=== PATIENT | female | born 1980 | race Caucasian/White ===

== ENCOUNTER 2021-02-09 15:23 | Inpatient (IN) | payer OTHER ==
[~2021-02-09] VITALS: Ht 152.4 cm; Wt 116.6 kg
[~2021-02-09 15:23] MED LIST: ACETAMINOPHEN-1 EAC1 PO; ALBUTEROL INHAL17 GM IH; ALLEGRA180 MG; AMOXICILLIN 50500 MG PO; APAP/CODEINE ELI5 M1 PO; AUGMENTIN 875-1 EACH PO; AUGMENTIN 875875 M1 PO; AZITHROMYCIN 2250 MG PO; BACTRIM DS TAB1 EACH PO; CHERATUSSIN DA480 ML PO; CIPROFLOXACIN500 M1 PO; CITRATE OF MAG296 ML PO; CLARITIN-D 24 H1 TA1 PO; COLACE 100 MG100 MG PO; CUPRIMINE250 MG PO; DOXYCYCLINE 10100 MG PO; FLAGYL500 MG PO; FLEXERIL PO; FLONASE 0.05%50 MCG NASAL; HYDRALAZINE 5050 M1 PO; IBUPROFEN 800800 M1 PO; IBUPROFEN 800800 MG PO; LORTAB 5 MG/5001 TA1 PO; MACROBID 100 M100 M1 PO; MEDROL DOSPAK21 TA1 PO; MOTRIN 600 MG600 M1 OR; NAPROSYN500 MG PO; NOHOMEMEDICATIONS; NORCO 5-325 TA1 EACH PO; OTC NASAL SPRAY; PENICILLIN V P500 MG PO; PENICILLIN VK500 M1 PO; PERCOCET 5-3251 EACH PO; PHENERGAN 25 MG25 M1 PO; PREDNISONE 20 M20 M1 PO; PYRIDIUM200 MG PO; TOBREX5 ML OP; ULTRAM 50MG TAB50 MG PO; VEETIDS 250MG250 M1 PO; VENTOLIN HFA INH8 GM IH; VICODIN 5-5001 EACH PO; XANAX 0.5 MG0.5 MG PO; XANAX 1 MG TABLE1 MG PO; ZOFRAN4 MG PO; [UNRECOGNIZED DRUG - REMARK] PO
[2021-02-09 15:26] VITALS: BP 130/65
[2021-02-09 16:13] LABS: CALCIUM 8.3 mg/dL (8.5-10.1); CREATININE 0.9 mg/dL (0.6-1.0); POTASSIUM 3.5 mmol/L (3.5-5.1)
[2021-02-09 16:15] LABS: ABSOLUTE NEUTROPHILS 8.8 thou/uL (1.4-8.2); BASOPHILS 0.6 % (0.0-2.0); EOSINOPHILS 2.2 % (0.0-3.0); HEMATOCRIT 34.6 % (37.0-47.0); HEMOGLOBIN 11.3 gm/dL (12.0-15.0); LYMPHOCYTES 19.8 % (24.0-44.0); MCH 27.1 pg (26.0-34.0); MCHC 32.7 g/dL (28.0-37.0); MCV 82.8 fL (80.0-100.0); MONOCYTES 7.9 % (1.0-8.0); PLATELET COUNT 482 thou/uL (150-400); POLYS 69.5 % (36.0-66.0); RBC 4.18 mil/uL (4.20-5.00); RDW 14.8 % (10.5-14.5); WBC 12.6 thou/uL (4.0-11.0)
[2021-02-09 16:23] LABS: ALBUMIN 2.8 g/dL (3.4-5.0); TOTAL BILIRUBIN 0.3 mg/dL (0.2-1.0); TOTAL PROTEIN 7.3 g/dL (6.4-8.2)
[2021-02-09 18:55] LABS: TOTAL PROTEIN 7.1 g/dL (6.4-8.2)
[2021-02-09 21:49] VITALS: BP 168/93
[2021-02-09 22:12] VITALS: BP 127/77
[2021-02-09 22:35] VITALS: BP 120/69
--- NOTE | 2021-02-10 01:45 | NUR ---
ADMITTED TO ROOM 433 AT 2230 FROM ED. PATIENT IS A&OX4. REPORTS GENERALIZED PAIN ALL OVER HER BODY. PRN ANALGESIG PROVIDED TO MANAGE PAIN. ON ROOM AIR, O2sat REMAINS >92%. INTERMITTENT CONGESTED COUGH, UNABLE TO SPIT UP SPUTUM. LUNG SOUND ARE CLEAR UN UPPER LOBES, AND CRACKLES IN BILATERAL LOWER LOBES. PATIENT REPORTS BEING A REGULAR SMOKER, AND HAVING A HISTORY OF BRONCHITIS. REMAINS NON-FEBRILE. PRESENTS WITH ABSCESSES ON BACK OF NECK THAT IS ACTIVELY OOZING WITH PURULENT AND SANGUINOUS DRAINAGE, LEFT OPEN TO AIR. WOUND ON LEFT LOWER EXTREMITY FROM PREVIOUS FALL, CLEANED WITH NS AND COVERED WITH OPTIFOAM. PICTURES AND MEASUREMENTS OF OPEN WOUNDS PERFORMED. IV FLUIDS RUNNING AT 126cc/HR IN R HAND. PER SPECIAL WARFARE OPERATOR POE ORDER PATIENT IS TO BE NPO AFTER MIDNIGHT ON 02/10. PATIENT WAS ABLE TO HAVE A MEAL AND SNACKS AT 2300 OF 02/09. NOW RESTING POST ADMISSION ASSEMENT. CALL LIGHT WITHIN REACH. WILL CONTINUE TO MONITOR.
[2021-02-10 06:01] LABS: HEMOGLOBIN 10.4 gm/dL (12.0-15.0); MCHC 33.4 g/dL (28.0-37.0); MCV 83.9 fL (80.0-100.0); RBC 3.7 mil/uL (4.20-5.00); RDW 15.4 % (10.5-14.5); WBC 8.9 thou/uL (4.0-11.0)
[2021-02-10 06:12] VITALS: BP 125/60
[2021-02-10 06:19] LABS: CALCIUM 7.4 mg/dL (8.5-10.1); CREATININE 0.7 mg/dL (0.6-1.0); MAGNESIUM 1.9 mg/dL (1.8-2.4)
[2021-02-10 08:21] VITALS: BP 104/61
--- NOTE | 2021-02-10 08:37 | NUR ---
ASSESSMENT: CM REVIEWED CHART AND MET WITH PATIENT AT THE BEDSIDE. PT WAS ADMITTED DUE TO LIKELY SEPSIS. PT REPORTS BOILS ON THE BACK OF HER NECK AND LOWER EXTREMITY WOUND AFTER BUMPING HER LEG AFTER FALL ABOUT A MONTH Ago PER RECORDS. PT WAS COVID NEGATIVE. CM MET WITH PATIENT AND SHE IS NOT VERY FORTHCOMING WITH INFORMATION. PT REPORTS SHE LIVES AT HOME IN AN APT. WHEN ASKED HOW MANY STEPS PT HAD BEFORE ENTERING SHE SAID I DONT KNOW. PT REPORTS BEING INDEPENDENT WITH AMBULATION. PT DOES STATE SHE DOES NOT HAVE INSURANCE OF A PCP. CM PROVIDED PATIENT WITH HEALTH RESOURCE PACKET, [facility], FIND A PHYSICIAN FORM, WELL A [employer] DISCOUNT CARD. ID HAS BEEN CONSULTED WELL WOUND CARE. PT IS ON IV ANBX. CM WILL CONTINUE TO FOLLOW TO ASSIST NEEDED.
--- NOTE | 2021-02-10 11:19 | NUR ---
EXPLAINED ROLE OF OT TO PT., DISCUSSED WHAT IS INCLUDED IN AN EVALUATION. ALSO OBSERVED PT. AMBULATING IN HALLWAY WITH P.T. PT. IS DECLINING A FORMAL OT EVALUATION, STATES NO CONCERNS FOR SELF-CARE OR FUNCTIONAL MOBILITY. OT WILL D/C ORDERS PER PT. REQUEST.
--- NOTE | 2021-02-10 13:15 | NUR ---
ORDERS RECEIVED FOR PT EVAL AND TREAT. Pt LIVES IN APT W/ EXBOYFRIEND AND HIS GIRLFRIEND. HAS 3 FLIGHTS OF STAIRS W/ BILAT HR TO SECOND FLOOR APT. NO AD USE PRIOR. FELL ABOUT A MONTH AGO AND CUT HER LEG WHEN SHE TRIPPED. HAS L LE WOUND AT THAT SITE NOW. ALSO HAS BOILS ON BACK OF NECK/HEAD AND L FOOT. NO ROM OR MMT DEFICITS NOTED IN LEs. Pt HAS BEEN UP TO BATHROOM ON HER OWN ALREADY. Pt OBSERVED TO BE INDEP W/ BED MOBILITY, SIT>STAND, AND 250 FT AROUND UNIT PUSHING IV POLE. Pt REPORTED NO MOBILITY DEFICITS. Pt CLEARED TO BE UP AD ASHTYN AND STATED SHE WANTED TO BE ABLE TO WALK MORE. NO FURTHER ACUTE PT NEED IDENTIFIED. ACUTE PT TO SIGN OFF.
[2021-02-10 15:35] VITALS: BP 160/92
--- NOTE | 2021-02-10 18:30 | NUR ---
PT ASSESSED AT START OF SHIFT. NPO UNTIL LUNCH AND ABLE TO EAT AFTER NO SURGERY PLANS FOR TODAY. WOUND CARE IN TO SEE PT AND SURGEON CONSULTED TO DO I&D TOMORROW ON ABSCESSES. PT WALKED DOWN TO SMOKE OUTSIDE OF ER AND SECURITY CALLED AND ESCORTED HER BACK TO HER ROOM. PAIN MEDS HELPING PAIN.
[2021-02-10 20:02] VITALS: BP 142/84
--- NOTE | 2021-02-10 23:30 | NUR ---
DRESSSING CHANGE PROVIDED PER ORDERS. PT IS UP AD ASHTYN IN ROOM. SHE WAS GIVEN NORCO FOR PAIN. PT OBSERVED SLEEPING MOST OF THE TIME AND FEELS LIKE WE ARE "BOTHERING HER" WHEN WE GO IN TO PROVIDE NURSING CARE.SHE IS OTHERWISE COOPERATIVE. NPO AFTER MIDNOC-POSSIBLE I/D TOMORROW.CALL LIGHT WITHIN REACH.
[2021-02-11 06:20] LABS: HEMATOCRIT 31.1 % (37.0-47.0); HEMOGLOBIN 10.2 gm/dL (12.0-15.0); MCH 27.7 pg (26.0-34.0); MCHC 32.9 g/dL (28.0-37.0); MCV 84.1 fL (80.0-100.0); RBC 3.7 mil/uL (4.20-5.00); RDW 14.9 % (10.5-14.5); WBC 8.5 thou/uL (4.0-11.0)
[2021-02-11 06:29] LABS: CALCIUM 7.2 mg/dL (8.5-10.1); CREATININE 0.6 mg/dL (0.6-1.0); MAGNESIUM 1.9 mg/dL (1.8-2.4); POTASSIUM 4.8 mmol/L (3.5-5.1)
[2021-02-11 08:17] VITALS: BP 144/89
--- NOTE | 2021-02-11 10:17 | NUR ---
Assumed care of pt at 0700. Pt a&ox4. Flat affect. Pain controlled with prn pain medicine. IVF and IV antibiotics infusing. Surgery scheduled for 1230. Family at bedside. Call light within reach. Will continue to monitor.
[2021-02-11 10:39] LABS: URINE BILIRUBIN NEGATIVE (Negative); URINE BLOOD NEGATIVE (Negative); URINE CLARITY CLEAR; URINE COLOR YELLOW; URINE GLUCOSE-RANDOM* NEGATIVE (Negative); URINE KETONES NEGATIVE (Negative); URINE LEUKOCYTES-REFLEX NEGATIVE (Negative); URINE NITRITE-REFLEX NEGATIVE (Negative); URINE PROTEIN (DIPSTICK) NEGATIVE (Negative); URINE SPECIFIC GRAVITY 1.015 (1.005-1.035); URINE UROBILINOGEN 0.2 E.U./dl (0.2-1.0)
--- NOTE | 2021-02-11 11:57 | HC ---
[facility] [place] [address] CONSULTATION Name: KRISTI AGUILAR Room #: 433-I ADM IN M.R.#: [id number] Admission: 02/09/21 Attend Phys: Payam Burogs MD Discharge: Date of : 78 Report #: [id number] THIS REPORT FOR: cc: FAM - No family physician/PCP FAM - No family physician/PCP Jose Arauz MD ~ DATE OF SERVICE: 02/10/2021 INFECTIOUS DISEASE CONSULTATION ATTENDING PHYSICIAN: Dr. Quarles. REASON FOR EVALUATION: Multifocal skin and soft tissue infection, previous injury to the distal aspect of the left lower extremity plus multiple appear to be furuncles involving the posterior aspect of the neck under the scalp. HISTORY OF PRESENT ILLNESS: The patient examined. This is a 40-year-old with a history of asthma who notes she had what described as a significant injury with laceration over the proximal aspect of the anterior lateral leg some 2 weeks ago. She attended to it, however, over the course of recent days, had increasing pain associated with it. It is not clear that she had a purulent drainage, although she did comment there was some drainage. It is not entirely clear that she had a systemic illness or not. She is quite lethargic to somnolent at this point. Additionally, she notes multiple areas on her scalp that has been draining as well that are quite tender. She notes she has not had a previous history of this type before. She did undergo an evaluation. Lactic acid was 1.6. Coronavirus testing was negative. Plain film of the left tib-fib showed no acute bony abnormality. CT of the head was otherwise unremarkable. Cultures have been collected from the blood are thus far negative. Wound cultures in progress. Did have rare gram-positive cocci on Gram stain. A second culture, however, had moderate gram-positive cocci. She was empirically started on combination therapy with cefepime and vancomycin. Again, she denies any specific pulmonary or gastrointestinal related complaints, although she is quite somnolent. ALLERGIES: ASPIRIN AND TRAMADOL. CURRENT MEDICATIONS: Include enoxaparin, cefepime, vancomycin, albuterol, p.r.n. ondansetron, narcotic analgesics. PAST MEDICAL HISTORY: Known history of asthma, migraines, panic attacks. She reports prior to the interview left armpit abscess requiring previous I and D. SOCIAL HISTORY: Smokes cigarettes up to 1/2 pack daily. Occasional ethanol, no illicit drug use. [facility] [address] [place] [address] CONSULTATION Name: KRISTI AGUILAR Room #: 433-I [facility] IN [facility]#: [id number] Admission: 02/09/21 Attend Phys: Payam Burgos MD Discharge: Date of : 78 Report #: [id number] FAMILY HISTORY: Noncontributory. REVIEW OF SYSTEMS: Otherwise, limited due to her somnolence. PHYSICAL EXAMINATION: GENERAL: She appears somewhat chronically ill, undernourished, [id number] distress. VITAL SIGNS: Temperature 99, pulse 74, respirations 21, blood pressure 160/92. SKIN: Warm, dry, no rashes. HEENT: Furuncles noted on the posterior aspect of the neck up into the scalp. It is quite tender to palpation. There is a lot of dried drainage, moderate degree of surface inflammation. Normocephalic. Extraocular muscles intact. NECK: Supple. LUNGS: Diminished breath sounds, otherwise clear. HEART: Regular. I do not appreciate a murmur. ABDOMEN: Slightly distended, mildly firm, nontender. EXTREMITIES: Left lower extremity was evaluated. She has a laceration with eschar. It is quite tender over the site and in the 1-2 cm at its margins. There is no expressible material. Clearly, there is some old bloody purulent type drainage. GENITOURINARY AND RECTAL: Deferred. LABORATORY DATA: Cultures as described above. Electrolytes from today, sodium 140, potassium 4.0, chloride 106, bicarbonate 26, anion gap of 8, BUN and creatinine 11 and 0.7, glucose of 105. Estimated GFR of 92. CBC: White count of 8.9, it is down from initial of 12.6. H and H 10.4 and 31.0, platelets of 414. TSH 0.609. Prealbumin of 15.9. Sed rate of 47. Lactic acid of 1.6. CRP of 19.5. ASSESSMENT AND PLAN: 1. Multifocal areas of skin and soft tissue infection with furuncles associated with the posterior scalp also, likely a secondary bacterial infection associated with a laceration. It is reasonable to continue empiric therapy. We would presume a Staph or Strep etiology based statistically as well as the Gram stain showing gram-positive cocci. At that point, we would try to narrow down the spectrum. It is unclear whether the somnolence is secondary to the illness or perhaps an adverse drug effects or due to narcotic, continue to monitor expectantly. We will add incentive spirometry. We will go ahead and check additional diagnostic testing. She remains at somewhat increased risk. Continue wound care as prescribed. May need a debridement at least the left lower extremity wound. <ELECTRONICALLY SIGNED> By: Jose Arauz MD 02/11/21 1157 [id number] Jose Arauz MD /prabha
[2021-02-11 16:07] LABS: HIV ANTIBODY Non Reactive (Non Reactive)
[2021-02-11 16:27] VITALS: BP 133/94
[2021-02-11 17:17] VITALS: BP 141/84
[2021-02-11 20:04] VITALS: BP 131/78
[2021-02-12 02:45] VITALS: BP 156/87
--- NOTE | 2021-02-12 03:23 | NUR ---
Assumed care of patient at 1900. Pt aox4. Beginning of shift assessmenmt complete. C/o 12/26 neck and ARCHULETA pain. Charge nurse to give IV morphine. Pt up adlib. Reinforced neck dressing and left axilla dressing. New PIV placed in LFA d/t prior iv site no longer patent. Secured with tegaderm. Iv abts and fluids running as ordered. meds given per aug. Pt c/o being hungry. [place] box, crackers, jello, moroccan ice, among other things provided to patient. VS WNL. all needs met. call light in reach. fall precations in place.
[2021-02-12 04:44] LABS: CALCIUM 7.9 mg/dL (8.5-10.1); CREATININE 0.8 mg/dL (0.6-1.0); POTASSIUM 4.2 mmol/L (3.5-5.1)
[2021-02-12 05:01] LABS: HEMATOCRIT 31.4 % (37.0-47.0); HEMOGLOBIN 10.2 gm/dL (12.0-15.0); MCH 27.4 pg (26.0-34.0); MCHC 32.4 g/dL (28.0-37.0); MCV 84.4 fL (80.0-100.0); RBC 3.72 mil/uL (4.20-5.00); RDW 14.6 % (10.5-14.5); WBC 11.7 thou/uL (4.0-11.0)
[2021-02-12 06:58] VITALS: BP 115/64
--- NOTE | 2021-02-12 10:34 | NUR ---
PT ASSESSED AT START OF SHIFT. PT ATE BKFT AND WANTING TO SLEEP. REQUESTED MORE MORPINE AND PLAN FOR DRESSING CHANGE AFTER MED HAS TIME TO WORK. POSSIBLE DC TODAY AFTER PLAN FOR ANTIBIOTICS.
[2021-02-12 16:55] VITALS: BP 115/64
--- NOTE | 2021-02-12 16:57 | NUR ---
ON-GOING ASSESSMENT: CM REVIEWED CHART AND MET BETZY PT AT THE BEDSIDE. PT REPORTS SHE IS ALONE IN HER APT BUT STATES SHE AMBULATES WELL WITHOUT DME. CM DISCUSSED THAT [facility] HAS BEEN ARRANGED FOR A FEW WOUND CARE VISITS FROM [facility] AND PT AGREEABLE. IF PATIENT DISCHARGES OVER THE WEEKEND WITH HOME HEALTH FAX ORDERS TO [facility] [phone]. CM ALSO VOUCHERED PATIENTS POSSIBLE DISCHARGE ANTIBIOTICS AND PROVIDED TO BEDSIDE RN TO LOCKUP IN MED ROOM AND PASS ON IN REPORT FOR RN TO VERIFY IF THEY ARE THE SAME AT TIME OF DISCHARGE IF SHE LEAVES OVER THE WEEKEND. VINCENT ALSO HAS A CAB VOUCHER ON THE FRONT OF CHART IF NEEDED. PT REMAINS ON IV ANBX CURRENTLY. CM WILL CONTINUE TO FOLLOW.
--- NOTE | 2021-02-12 18:30 | NUR ---
WOUND CARE CAME TO SEE PT AND OK'D CHANGING DSNG PER DR. ALDRIDGE ORDERS. LT AXILLA AND POSTERIOR NECK HAD 1/2 INCH PACKING STRIP W/ GAUZE W/ LARGE AMT OLD BLOODY DRAINAGE. NO ACTIVE DRAINAGE NOTED. NEW PACKING STIP INSTERTED AND BACTROBAN APPLIED TO GAUZE TO COVER. LL GUNN COVERED W/ BACTROBAN AND FOAM BORDER PER ORDERS. PT GOT ENOUGH TO EAT AT DINNER. ALTERNATING PAIN MEDS.
[2021-02-12 19:39] VITALS: BP 143/76
--- NOTE | 2021-02-13 02:32 | NUR ---
Assumed care of patient at 1900. Pt aox4. MARILU assessment complete. Iv fluids and IV abts running per aug. meds given per aug. charge nurse gave IV morpine. Neck dressing CDI, reinforced with tape. Laxilla dressing loose, reinforced, pt tolerated with moderate pain. VSS. pt requesting nicotene patch. will contact provider. pt reports smoking a pack a day for 10 years. LFA PIC cdi, patent. Observed pt walk to bathroom with no difficulties. got pt exra snacks, and provided pt with therapuetic communication. verbalized appreciation. all needs met. call light in reach.
[2021-02-13 05:22] LABS: CALCIUM 7.8 mg/dL (8.5-10.1); CREATININE 0.7 mg/dL (0.6-1.0); MAGNESIUM 1.8 mg/dL (1.8-2.4); POTASSIUM 4.8 mmol/L (3.5-5.1)
[2021-02-13 05:31] LABS: HEMATOCRIT 30.2 % (37.0-47.0); HEMOGLOBIN 9.8 gm/dL (12.0-15.0); MCH 27.1 pg (26.0-34.0); MCHC 32.2 g/dL (28.0-37.0); MCV 83.9 fL (80.0-100.0); RBC 3.6 mil/uL (4.20-5.00); RDW 15.2 % (10.5-14.5); WBC 11.6 thou/uL (4.0-11.0)
[2021-02-13 07:53] VITALS: BP 129/87
--- NOTE | 2021-02-13 14:18 | NUR ---
TODAY THIS PT HAS HAD STABLE VS AND SOME STATED PAIN IN WHICH WAS TAKEN CARE OF WITH MEDICATIONS. SHE HAS BEEN IN HER ROOM TOLERATING HER FLUIDS WELL AND HAS OTHERWISE TOLERATED HER DRESSING CHANGE WELL. SHE HAS ATE BOTH MEALS SO FAR WITH NO DIFFICULTY AND IS OTHERWISE AWAITING FOR THE NEXT PLAN.
[2021-02-13 15:52] VITALS: BP 160/108
[2021-02-13 19:37] VITALS: BP 139/79
--- NOTE | 2021-02-14 03:18 | NUR ---
ASSUMED CARE AT 1900. PT IS A/O X4 AND IS UP AD ASHTYN. ROOM AIR. LUNGS SOUNDS WHEEZY. PRN BRTX GIVEN DIRECTED. VSS. AFEBRILE. MEDICATION GIVEN PER AUG. PT C/O CONSTIPATION AND PAIN. PRN STOOL SOFTENER AND PAIN MEDICATION GIVEN DIRECTED. PT C/O BACK ITCHING AND CAUSING DISCOMFORT. PT WAS GIVEN BACK RUB WITH LOTION. PARTIAL RELIEF NOTED. PT CALLS OUT APPROPRIATELY FOR ASSISTANCE. CALL LIGHT IS WITHIN REACH. WOUND DRSGS C/D/I. REPLACED DRSG TO LLE DUE TO OTHER BANDAGE CAUSING DISCOMFORT. AT THIS TIME PT IS LYING IN HER BED WITH EYES CLOSED AND APPEARS TO BE SLEEPING WITHOUT SIGNS OF DISCOMFORT. WILL CONTINUE TO MONITOR.
[2021-02-14 10:03] VITALS: BP 139/79
--- NOTE | 2021-02-14 10:34 | NUR ---
ASSUMED CARE OF PT AT 0700 THIS MORNING. PT IS A/OX4, SKIN INTACT WITH NO TENTING EXCEPT FOR SEVERAL ULCERATED WOUNDS THAT WERE CHANGED THIS MORNING AND NOTED IN CHART. ASSESSMENTS NOTED IN CHART AND OTEHRWISE UNREMARKABLE. IV IN RT FA WITH NS AT 126ML/HR. DRESSINGS ARE C/D/I, VSS, CALL LIGHT AND OTHER NEEDS ARE WITHIN REACH. MEDS AND TX GIVEN NEEDED AND SCHEDULED. WILL MONITOR AND NOTE ANY CHANGES.
[2021-02-14 16:34] VITALS: BP 169/88
[2021-02-14 19:54] VITALS: BP 159/94
--- NOTE | 2021-02-15 04:36 | NUR ---
PT C/O PAIN TO HER HEAD AND NECK,MANAGED WITHMED.PT REQUESTED FOR AND RECEIVED BENADRYL FOR ITCHING.DRGS TO HER NECK AND L AXILLA C/D/I.PT UP ADLIB IN HER ROOM.NO BM NOTED THIS SHIFT PT CONT ON IVF AND IV ABX.PRN RT TX GIVEN BY RT PER PT'S REQUEST.PT ON THE CLOCK REQUESTING FOR PAIN MED.CALL LIGHT WITHIN REACH.
[2021-02-15 04:38] VITALS: BP 151/84
[2021-02-15 07:53] VITALS: BP 143/88
[2021-02-15 10:44] VITALS: BP 143/88
[2021-02-15] MEDS ORDERED: LEVOFLOXACIN500 MG PO (14:54)
[2021-02-15] MEDS ORDERED: ACETAMINOPHEN325 M1 PO (14:54)
[2021-02-15] MEDS ORDERED: MUPIROCIN22 GM TOP (14:54)
[2021-02-15] MEDS ORDERED: HYDROCODON-ACE1 EAC7 PO (14:54)
[2021-02-15] MEDS ORDERED: MINOCYCLINE HC100 M2 PO (14:54)
[2021-02-15] MEDS ORDERED: NICOTINE1 EAC2 TRANSDERM (14:54)
--- NOTE | 2021-02-15 14:56 | NUR ---
ON-GOING ASSESSMENT: CM REVIEWED CHART. PT REMAINS ON IV ANBX. PER ID NOTE PLANS ARE TO TRANSITION TO ORAL ANBX AT THE TIME OF DISCHARGE. DUE TO PATIENTS WOUNDS/WOUND CARE CM HAS ARRANGED FOR [facility] WITH PATIENT. CM ALSO PROVIDED PT WITH [facility]/FIND A PHYSICIAN FORM/HEALTH RESOURCE PACKET/[facility] INFORMATION. CM WILL CONTINUE TO FOLLOW TO ASSIST NEEDED.
[2021-02-15 14:57] VITALS: BP 115/64
--- NOTE | 2021-02-15 15:43 | NUR ---
ASSUMED CARE OF PT AT 0700 THIS MORNING AGAIN. PT HAD NO CHANGE OVERNIGHT AND RESTED COMFORTABLY. ASSESSMENTS AND REPORT NOTED IN CHART AND OTHERWISE NON REMARKABLE. PT IS A/OX4, AND IS READY TO GO HOME. PT IS BEING DISCHARGED THIS AFTERNOON. WOUNDS WERE REDRESSED AROUND 1200 THIS AFTERNOON. CALL LIGHT AND OTHER NEEDS ARE WITHIN REACH AND VSSM. PT UP AT ASHTYN. MEDS AND TX GIVEN NEEDED AND SCHEDULED. PT SIGNED DISCHARGE ORDERS AND EDUCATION MATERIAL GIVEN TO PT. PT XFERRED TO FRONT ENTRANCE TO [facility].
--- NOTE | 2021-02-16 11:56 | HC ---
[facility] [place] [address] CONSULTATION Name: KRISTI AGUILAR Room #: 433-I [facility] IN M.R.#: [id number] Admission: 02/09/21 Attend Phys: Payam Burgos MD Discharge: 02/15/21 Date of : 78 Report #: [id number] THIS REPORT FOR: cc: FAM - No family physician/PCP FAM - No family physician/PCP Aram Louis MD ~ WOUND CARE CONSULTATION NOTE REASON FOR CONSULTATION: Status post incision and drainage of boil of posterior neck and left axilla due to cellulitis and MRSA infection. HISTORY OF PRESENT ILLNESS: The patient is a 40-year-old nondiabetic woman who was taken to the operating room 2 days ago on 02/11/2021 for incision and drainage of a cutaneous boil of the posterior neck and the left axilla and presenting with cellulitis and leukocytosis with a fever of 103. She has been better since she has been drained. Wound cultures have grown methicillin-resistant Staph aureus. She is currently on antibiotics, vancomycin for this. She was taken to the operating room on 02/11/[address] Ever Orlando. Wounds have been packed with iodoform gauze. PAST MEDICAL HISTORY: The patient is nondiabetic. History of anxiety, urinary tract infections. ALLERGIES: TRAMADOL AND ASPIRIN. LABORATORY DATA: Show white blood count of 12.6 on admission, currently now white blood count of 11.6 today. Mild protein calorie malnutrition, albumin 3.0. PHYSICAL EXAMINATION: GENERAL: Shows an awake, alert woman with obesity. HEENT: Mucous membranes are moist. NECK: Supple. LUNGS: Respirations unlabored. EXTREMITIES: Focused physical examination shows a linear 2.5 cm incision of the posterior neck at the base. Iodoform pack is removed. There is minimal drainage. There is a wound approximately 2.5 cm long x 1 cm deep which repacked with iodoform gauze. The patient also has a linear incision of the left axilla; nurse will remove the packing and replace. Both areas show no evidence of marked cellulitis. IMPRESSION: Cutaneous boil at the base of the posterior neck and the left axilla, 2 days status post incision and drainage. Leukocytosis is responding. PLAN: The patient is currently afebrile. Continue directed antibiotic therapy [address] [address] CONSULTATION Name: KRISTI AGUILAR Room #: [facility]-I [facility] IN .R.#: [id number] Admission: 02/09/21 Attend Phys: Payam Burgos MD Discharge: 02/15/21 Date of : 78 Report #: [id number] with vancomycin. Continue packing the wound with iodoform gauze daily. Wound care team will follow. <ELECTRONICALLY SIGNED> By: Aram Louis MD 02/16/21 1156 [id number] 40 Aram Louis MD /prabha
== END 2021-02-15 18:13 | disposition home health service (06) | DRG 854 ==
LOC: ER 15:23 → 4S 18:11 → EROBS 18:11 → 4S 22:19
PROVIDERS: Internal Medicine; Specialist; Student in an Organized Health Care Education/Training Program; ADMIT Internal Medicine; ATTEND Internal Medicine
DX: A41.9 Sepsis, unspecified organism (principal); Z68.43 Body mass index [BMI] 50.0-59.9, adult; L03.221 Cellulitis of neck; L02.11 Cutaneous abscess of neck; G93.40 Encephalopathy, unspecified; L02.412 Cutaneous abscess of left axilla; E44.1 Mild protein-calorie malnutrition; L03.112 Cellulitis of left axilla; F41.9 Anxiety disorder, unspecified; F32.9 Major depressive disorder, single episode, unspecified; J45.909 Unspecified asthma, uncomplicated; F41.0 Panic disorder [episodic paroxysmal anxiety]; F17.210 Nicotine dependence, cigarettes, uncomplicated; L02.12 Furuncle of neck; L02.422 Furuncle of left axilla; S80.922A Unspecified superficial injury of left lower leg, initial encounter; X58.XXXA Exposure to other specified factors, initial encounter; L02.821 Furuncle of head [any part, except face]; B95.62 Methicillin resistant Staphylococcus aureus infection as the cause of diseases classified elsewhere; B95.0 Streptococcus, group A, as the cause of diseases classified elsewhere; B96.5 Pseudomonas (aeruginosa) (mallei) (pseudomallei) as the cause of diseases classified elsewhere; E66.01 Morbid (severe) obesity due to excess calories; G43.909 Migraine, unspecified, not intractable, without status migrainosus; S81.812A Laceration without foreign body, left lower leg, initial encounter; Z20.822 Contact with and (suspected) exposure to COVID-19; Y99.8 Other external cause status; Z90.49 Acquired absence of other specified parts of digestive tract; Z79.899 Other long term (current) drug therapy; Z88.6 Allergy status to analgesic agent; Z88.5 Allergy status to narcotic agent; Y93.89 Activity, other specified; Y92.89 Other specified places as the place of occurrence of the external cause
CPT/HCPCS: 10195; 50010; 50101; 50386; 50403; 57103; 62110; 62900; 70005

== ENCOUNTER 2021-02-22 12:08 | Emergency (ER) | payer OTHER ==
[~2021-02-22] VITALS: Ht 167.6 cm; Wt 113.4 kg
[~2021-02-22 12:08] MED LIST changes: +ACETAMINOPHEN325 M1 PO; +HYDROCODON-ACE1 EAC7 PO; +LEVOFLOXACIN500 MG PO; +MINOCYCLINE HC100 M2 PO; +MUPIROCIN22 GM TOP; +NICOTINE1 EAC2 TRANSDERM
[2021-02-22] MEDS ORDERED: LEVAQUIN 500 M500 MG PO (12:53)
[2021-02-22] MEDS ORDERED: NORCO 10-325 T1 EACH PO (12:53)
[2021-02-22] MEDS ORDERED: MINOCYCLINE HC100 M2 PO (12:53)
[2021-02-22 13:09] VITALS: BP 129/106
== END 2021-02-22 13:18 | disposition home or self-care (01) ==
LOC: ER 12:08
DX: L02.811 Cutaneous abscess of head [any part, except face] (principal); J45.909 Unspecified asthma, uncomplicated; G43.909 Migraine, unspecified, not intractable, without status migrainosus; F17.210 Nicotine dependence, cigarettes, uncomplicated; Z90.49 Acquired absence of other specified parts of digestive tract; Z79.899 Other long term (current) drug therapy; Z79.891 Long term (current) use of opiate analgesic; Z88.5 Allergy status to narcotic agent; Z88.6 Allergy status to analgesic agent